=== PATIENT | female | born 1945 | race Caucasian/White ===

== ENCOUNTER 2017-03-09 05:30 | Inpatient (IN) | payer OTHER ==
[2017-03-07 13:16] LABS: HEMATOCRIT 30.6 % (37.0-47.0); HEMOGLOBIN 10.4 gm/dL (12.0-15.0); MCH 29.4 pg (26.0-34.0); MCHC 34.1 g/dL (28.0-37.0); MCV 86.1 fL (80.0-100.0); RBC 3.56 mil/uL (4.20-5.00); RDW 13.6 % (10.5-14.5); URINE BILIRUBIN NEGATIVE (Negative); URINE BLOOD NEGATIVE (Negative); URINE CLARITY CLEAR; URINE COLOR YELLOW; URINE GLUCOSE-RANDOM* NEGATIVE (Negative); URINE KETONES TRACE (Negative); URINE LEUKOCYTES-REFLEX NEGATIVE (Negative); URINE NITRITE-REFLEX NEGATIVE (Negative); URINE PROTEIN (DIPSTICK) NEGATIVE (Negative); URINE SPECIFIC GRAVITY 1.025 (1.005-1.035); URINE UROBILINOGEN 0.2 E.U./dl (0.2-1.0); WBC 5.6 thou/uL (4.0-11.0)
[2017-03-07 13:30] LABS: ALBUMIN 3.7 g/dL (3.4-5.0); APTT 23.8 Seconds (24.5-32.8); CALCIUM 9.1 mg/dL (8.5-10.1); CREATININE 1.2 mg/dL (0.6-1.0); INR 1.1; POTASSIUM 4.8 mmol/L (3.5-5.1); PROTIME 11.1 Seconds (9.3-11.4); TOTAL BILIRUBIN 0.5 mg/dL (<0.1-1.0); TOTAL PROTEIN 6.1 g/dL (6.4-8.2)
[2017-03-09] VITALS (34 sets, daily range): BP systolic 86–119; BP diastolic 29–73
[~2017-03-09] VITALS: Ht 152.4 cm; Wt 72.1 kg
--- NOTE | ~2017-03-09 | O ---
[facility] [address] [place] [address] OPERATIVE REPORT Name: FRANCO KENDRICK Room #: 240-P [facility] IN M.R.#: [id number] Admission: 03/09/17 Attend Phys: Mike Garza MD Discharge: 03/10/17 Date of : 45 Report #: [id number] THIS REPORT FOR: //name// CC: Mike HawthorneErica DATE OF SERVICE: 03/09/2017 PREOPERATIVE DIAGNOSIS: Right internal carotid artery stenosis, asymptomatic. FINAL DIAGNOSIS: Right internal carotid artery stenosis, asymptomatic. OPERATIVE PROCEDURE PERFORMED: Right internal carotid endarterectomy with EEG monitoring. SURGEON: Mike Garza MD. STEERSMAN: Gabriella Pugh. ANESTHESIA: General. OPERATIVE INDICATIONS: The patient is a 72-year-old female, followed for an internal carotid artery stenosis for sometime now. The patient was told evidence of high grade stenosis, underwent subsequent angiography showing evidence of significant discrete right internal carotid artery stenosis proximally, about 80% in diameter. It was felt prudent to proceed with a carotid endarterectomy at this time. OPERATIVE SUMMARY: The patient was brought to the operating room and placed on the OR table in supine position. After anesthesia was induced via the general endotracheal route and monitoring lines have been positioned, the patient was prepped and draped in sterile fashion with chlorhexidine. I made an oblique incision in the patient's right neck medial to the sternocleidomastoid muscle. Dissection was carried down through the platysma and subcutaneous tissues. The contents of the carotid sheath was identified and dissected free from surrounding tissue. We identified the common internal and external carotid arteries without difficulty. The hypoglossal and vagus nerves were identified and care was taken not to injure them. The patient was given 15,000 units intravenous heparin. The internal, then common, then external carotid arteries were clamped. A common carotid arteriotomy was made and extended up into the internal carotid artery. 14-Montenegrin shunt was then placed in the internal carotid artery, backbled and then placed in the common carotid artery. It should be noted that EEG changes were noted after clamping of the vessel. These EEG changes returned to baseline after the shunt was inserted. We then dissected the plaque from the vessel wall. It was amputated proximally and distally, there was good tapering, and an eversion endarterectomy was performed [address] [address] OPERATIVE REPORT Name: FRANCO KENDRICK Melo Room #: 240-P [facility] IN M.R.#: [id number] Admission: 03/09/17 Attend Phys: Mike Garza MD Discharge: 03/10/17 Date of : 45 Report #: [id number] in the external carotid artery. Then, all loose fronds were debrided from the vessel wall. No tacking sutures were needed distally. I felt that since this was relatively large vessel, the 14-Montenegrin shunt able to be inserted that we would close the arteriotomy without a patch. I therefore closed the arteriotomy with 6-0 Prolene. Prior to completing the closure, the shunt was clamped and removed. We replaced the clamps on the internal common carotid arteries. The site was flushed both retrograde and antegrade and irrigated with heparinized saline solution. Just prior to completing the closure, the clamp on the external carotid artery was removed to allow the site to deair. We then finished the closure. The clamp was then removed from the common carotid artery, and then, after several beats, the clamp was removed on the internal carotid artery to restore blood flow to the brain. Again, EEG changes were noted while the clamps were on and the shunt was being removed; however, the EEG returned to normal shortly after reestablishing flow. Protamine was then given to reverse the heparin, and hemostasis was deemed adequate. The wound was closed in multiple layers with absorbable suture. Prior to closure, Doppler ultrasound was performed of the vessels, and there were good signals noted in the common internal and external carotid arteries. <ELECTRONICALLY SIGNED> By: Mike Garza MD 04/02/17 1157 1209 1302 Mike Garza MD /nt
--- NOTE | ~2017-03-09 | S ---
[facility] [place] [address] SURGICAL PATH RPT PROCEDURE Name: CHERELLE KENDRICK Room #: 240-P ADM IN M.R.#: [id number] Admission: 03/09/17 Date of : 45 Discharge: Report #: [id number] Path Case #: [id number] PATHOLOGY REPORT COLLECTION DATE: 03/09/2017 RECEIVED DATE: 03/09/2017 SUBMITTING PHYS: Dr. Mike Garza OTHER PHYS: Dr. Danielle Hawthorne SPECIMEN(S) RECEIVED: A.Plaque right carotid artery * * * * * * * * * * * * FINAL DIAGNOSIS: Plaque right carotid artery, removal: - Marked calcific sclerosis. (IUV:rlm; 03/10/2017) PATHOLOGIST: Kathie Strickland M.D. REPORT ELECTRONICALLY SIGNED BY: Kathie Strickland M.D. DATE/TIME: 03/10/2017 15:33 * * * * * * * * * * * * GROSS PATHOLOGY: The specimen is received in formalin, labeled "Cherelle Kendrick and plaque right carotid artery", is a previously opened partially calcified tubular segment 2.8 x 0.5 cm. Quality Specialist sections in A1 after decalcification. (SWS; 03/09/2017) CLINICAL HISTORY: Carotid stenosis INITIAL CPT CODE(S): A; 45385, 75105 Professional services performed by [facility] at [facility] [address], [place] [address] Technical services performed by [facility] at [address] [place] [address]., [address], [place] [address]. [facility] [address] [place] [address] SURGICAL PATH RPT PROCEDURE Name: CHERELLE KENDRICK Room #: 240-P ADM IN M.R.#: [id number] Admission: 03/09/17 Date of : 45 Discharge: Report #: [id number] Path Case #: [id number] [place] [address] PHONE: [phone] DIRECTOR: Mauri Ruelas M.D. * * * END OF REPORT * * *
[~2017-03-09 05:30] MED LIST: AMARYL4 MG PO; AMLODIPINE BESY10 MG PO; ASPIR 8181 MG PO; ATENOLOL 50MG T50 M1; ATORVASTATIN CA40 MG PO; CALCIUM CITRAT1 EA19 PO; CILOSTAZOL 100100 M1 PO; CINNAMON500 MG PO; CLARITIN10 MG PO; COLACE100 MG PO; FISH OIL 1,0001 EAC5 PO; FLONASE 0.05%50 MCG; FOSAMAX 70 MG T70 MG PO; GLUCOPHAGE500 MG; GLYBURIDE 3 MG M3 M1; GLYBURIDE 3 MG M3 MG; HYDROCHLOROTHIA25 M2 PO; LEVOTHROID125 MCG PO; LEVOXYL112 MCG PO; ONGLYZA2.5 MG PO; PLAVIX 75 MG TA75 M1 PO; PRILOSEC40 MG PO; SIMVASTATIN20 MG; VITAMIN B-12500 MCG PO; VITAMIN B-125000 MCG; VITAMIN E400 UNIT PO; ZESTRIL40 MG PO
[2017-03-09 19:11] LABS: GLYCOHEMOGLOBIN (HGB A1C) 8.5 % (4.8-5.6)
[2017-03-10] VITALS (10 sets, daily range): BP systolic 103–130; BP diastolic 35–47
[2017-03-10 05:05] LABS: CALCIUM 7.4 mg/dL (8.5-10.1); CREATININE 0.9 mg/dL (0.6-1.0); POTASSIUM 4.4 mmol/L (3.5-5.1)
[2017-03-10 05:33] LABS: HEMOGLOBIN 8.2 gm/dL (12.0-15.0); MCH 29.2 pg (26.0-34.0); MCV 85.7 fL (80.0-100.0); RBC 2.8 mil/uL (4.20-5.00); RDW 13.7 % (10.5-14.5); WBC 5.1 thou/uL (4.0-11.0)
[2017-03-10] MEDS ORDERED: HYDROCODONE-AP1 EAC6 PO (10:26)
== END 2017-03-10 15:00 | disposition home or self-care (01) | DRG 27 ==
LOC: ICU 05:30 → TBA 05:30 → PRE 12:29 → ICU 14:28 → PRE 15:27 → ENTRNSPT 03-10 14:05 → EDTRNSPTSTS 03-10 14:09 → ICU 03-10 15:00
PROVIDERS: Nurse Practitioner; Thoracic Surgery (Cardiothoracic Vascular Surgery)
PROC: 03CK3ZZ Extirpation of Matter from Right Internal Carotid Artery, Percutaneous Approach (ICD-10-PCS; principal; 2017-03-09)
DX: I65.21 Occlusion and stenosis of right carotid artery (principal); I95.9 Hypotension, unspecified; I10 Essential (primary) hypertension; E78.5 Hyperlipidemia, unspecified; E11.65 Type 2 diabetes mellitus with hyperglycemia; E03.9 Hypothyroidism, unspecified; I25.10 Atherosclerotic heart disease of native coronary artery without angina pectoris; R00.1 Bradycardia, unspecified; Z88.8 Allergy status to other drugs, medicaments and biological substances; Z88.2 Allergy status to sulfonamides
CPT/HCPCS: 10204; 50010; 50101; 50386; 50417; 50455; 51301; 56524; 56526; 56528; 56534; 62110; 62900; 65020; 65040; 65043; 70005

== ENCOUNTER → 2019-05-29 | Outpatient (CLI) | payer OTHER ==
[~2019-05-29] MED LIST changes: +HYDROCODONE-AP1 EAC6 PO
== END ==
LOC: SJCVCIMAG 08:11
DX: I65.23 Occlusion and stenosis of bilateral carotid arteries (principal); I70.203 Unspecified atherosclerosis of native arteries of extremities, bilateral legs; E11.51 Type 2 diabetes mellitus with diabetic peripheral angiopathy without gangrene; I87.2 Venous insufficiency (chronic) (peripheral); I25.10 Atherosclerotic heart disease of native coronary artery without angina pectoris; I10 Essential (primary) hypertension; I48.91 Unspecified atrial fibrillation

== ENCOUNTER → 2019-08-07 | Outpatient (CLI) | payer OTHER | LOC: SJCVCIMAG 08:42 | PROVIDERS: ATTEND Internal Medicine Cardiovascular Disease | DX: I08.8 Other rheumatic multiple valve diseases (principal); I11.9 Hypertensive heart disease without heart failure; I48.91 Unspecified atrial fibrillation; I45.10 Unspecified right bundle-branch block; R94.31 Abnormal electrocardiogram [ECG] [EKG]; I25.810 Atherosclerosis of coronary artery bypass graft(s) without angina pectoris; E78.00 Pure hypercholesterolemia, unspecified; M16.0 Bilateral primary osteoarthritis of hip; E11.9 Type 2 diabetes mellitus without complications; Z79.84 Long term (current) use of oral hypoglycemic drugs; Z79.899 Other long term (current) drug therapy; Z79.4 Long term (current) use of insulin; Z98.61 Coronary angioplasty status; Z95.1 Presence of aortocoronary bypass graft; Z82.49 Family history of ischemic heart disease and other diseases of the circulatory system ==

== ENCOUNTER → 2020-02-04 | Outpatient (CLI) | payer OTHER | LOC: SJCVC 14:01 | PROVIDERS: ATTEND Internal Medicine Cardiovascular Disease | DX: R94.31 Abnormal electrocardiogram [ECG] [EKG] (principal); I45.10 Unspecified right bundle-branch block; I48.91 Unspecified atrial fibrillation; I25.10 Atherosclerotic heart disease of native coronary artery without angina pectoris; I10 Essential (primary) hypertension; E78.00 Pure hypercholesterolemia, unspecified; Z95.1 Presence of aortocoronary bypass graft; Z91.040 Latex allergy status ==

== ENCOUNTER → 2020-02-12 | Outpatient (CLI) | payer OTHER | LOC: SJCVCIMAG 08:17 | PROVIDERS: ATTEND Internal Medicine Cardiovascular Disease | DX: I70.203 Unspecified atherosclerosis of native arteries of extremities, bilateral legs (principal); I11.9 Hypertensive heart disease without heart failure; I25.10 Atherosclerotic heart disease of native coronary artery without angina pectoris; I48.91 Unspecified atrial fibrillation; E78.00 Pure hypercholesterolemia, unspecified; E11.9 Type 2 diabetes mellitus without complications; I77.9 Disorder of arteries and arterioles, unspecified; I87.2 Venous insufficiency (chronic) (peripheral); Z79.84 Long term (current) use of oral hypoglycemic drugs; Z79.82 Long term (current) use of aspirin; Z91.040 Latex allergy status ==

== ENCOUNTER 2020-04-07 06:41 | Observation (INO) | payer OTHER ==
[2020-04-07] VITALS (9 sets, daily range): BP systolic 108–172; BP diastolic 44–94
[~2020-04-07] VITALS: Ht 152.4 cm; Wt 113.7 kg
[2020-04-07 07:41] LABS: HEMATOCRIT 36.5 % (37.0-47.0); HEMOGLOBIN 12.1 gm/dL (12.0-15.0); MCH 32.1 pg (26.0-34.0); MCHC 33.2 g/dL (28.0-37.0); MCV 96.7 fL (80.0-100.0); RBC 3.77 mil/uL (4.20-5.00); RDW 14.1 % (10.5-14.5); WBC 5.9 thou/uL (4.0-11.0)
[2020-04-07 07:46] LABS: CALCIUM 9.2 mg/dL (8.5-10.1); CREATININE 1.2 mg/dL (0.6-1.0); POTASSIUM 3.7 mmol/L (3.5-5.1)
[2020-04-07] MEDS ORDERED: LANTUS SUBQ (07:53)
[2020-04-07] MEDS ORDERED: XARELTO20 MG PO (07:54)
[2020-04-07] MEDS ORDERED: ONGLYZA5 MG PO (07:55)
--- NOTE | 2020-04-07 17:16 | CATHLAB ---
[facility] [address] [place] [address] INVASIVE PROCEDURE REPORT Name: FRANCO KENDRICK Room #: 214-P [facility]..#: [id number] Admission: 04/07/20 Attend Phys: Phillip Landa MD Discharge: Date of : 45 Report #: [id number] THIS REPORT FOR: cc: Danielle Ibanez MD, Paula V. MD Park, Jin S. MD ~ APPROVED REPORT Study performed: 04/07/2020 10:25:14 Patient Details Patient Status: Out-Patient Room #: The patient is a 75 year-old female Event Personnel Sandra Pabon RN RN, Beto North Staff Research Scientist, Mark Peralta RTR Monitor, Lucia Hoff RTR, RICE DRIER Scrub Procedures Performed Art Access - R femoral artery* RON Revasc Graft Single RCA C9604 SVGREVSING Left Heart Cath Coronaries, Bypass Grafts 4727117 LHCCORCABG 93236 Initial Mod Sed Same Phys/QHP Gr5y 324546 24554 Mod Sed Same Phys/QHP Ea 504352 Hemostasis with Manual pressure Indication Dyspnea, Unstable angina , Chest pain Risk Factors Peripheral Vascular Disease, Hypercholesterolemia, Coronary Artery DiseaseHypertension, Diabetes Previous Procedures/Diagnoses Previous CABG, Previous Femoral Procedure Procedure Narrative The patient was brought electively to the Cardiac Catheterization Laboratory and was prepped and draped in a sterile manner. A SHEATH BRITE-TIP 6F X 11CM ([id number]) sheath was inserted into the RFA^. Coronary angiography was performed using coronary diagnostic catheters. The right coronary system was accessed and visualized with a JR4 catheter. The left coronary system was accessed and visualized with a JL4 catheter. Left ventricular/Aortic Valve gradient assessed [facility] [place] [address] [place] [address] INVASIVE PROCEDURE REPORT Name: FRANCO KENDRICK Room #: 214-P [facility]#: [id number] Admission: 04/07/20 Attend Phys: Phillip Landa, Discharge: Date of : 45 Report #: [id number] via catheter pullback. The patient tolerated the procedure well and there were no complications associated with the procedure. There was no hematoma. Hemostasis was obtained after sheath removal and manual pressure two hours post procedure. Intraoperative Conscious Sedation Sedation start time: 0840 Case end Time: 1120 Fentanyl 100 mcg Versed 2 mg This was a combination procedure with Aortagram and Run off performed by Dr. Phillip Landa. Medicine and radiation dose reflect both procedures. Fluoro Time: 26.64 minutes Dose: DAP 74871.60 cGycm2 1468 mGy Contrast Type and Amount: Visipaque 263 ml Coronary Angiography The patient's coronary anatomy is right dominant. [place] Artery Percent Stenosis Left Main: % Prox LAD: 100 % Mid/Distal LAD: % Circumflex: 90 % RCA: 90 % Ramus: % Diagnostic Cath LAD There is a patent SAN graft with an end-to-side anastomosis to the mid LAD segment. There were no flow-limiting lesions. After the anastomosis, there is both retrograde and anterograde flow in the [place] LAD. OM1 There is a patent SVG with an end-to-side anastomosis to OM1. There is a mild stenosis within the midsegment of the vein graft, 30%. Right Coronary There is a severe occlusion in the mid segment of the SVG to the distal RCA, 90%. Left Ventriculography Left Ventriculography was not performed. Ejection Fraction was >55% based off patient's Echocardiogram. An LVEDP was measured and there is no gradient across the outflow tract. Hemodynamics The aortic pressure is 126/56 mmHg with a mean of 82 mmHg. The left ventricular pressure is 120/4 mmHg with a mean of mmHg. The left ventricular end diastolic pressure is 12 mmHg. Pullback from the left ventricle to the aorta revealed no gradient across the aortic valve. [facility] [address] [place] [address] INVASIVE PROCEDURE REPORT Name: FRANCO KENDRICK Room #: 214-P [facility]..#: [id number] Admission: 04/07/20 Attend Phys: Phillip Landa, Discharge: Date of : 45 Report #: [id number] PCI Technique Lesion Percutaneous coronary intervention was performed on the SVG to the distal RCA. The lesion stenosis prior to intervention was 95% with TOM 3 flow. A 6FR MP2 Guide Catheter was used to engage the ostium. A LUGE Interventional Guidewire was used to cross the lesion. BALLOON DILATION A Balloon catheter TREK RX 2.5 X 12 #[id number] was inserted and inflated up to 12.00atm for 16seconds. STENT DEPLOYMENT A drug-eluting stent XIENCE SÁNCHEZ RX 3.0 X 12 #[id number] was inserted and inflated up to 16atm for 15seconds. Final angiography reveals 0 % stenosis with TOM 3 flow. PCI Technique Lesion 3 Percutaneous Coronary Intervention was performed on the Mid 02/16. Conclusion 1. Successful insertion of a drug-eluting stent into the SVG to the RCA. 2. There is a patent SAN graft to the LAD. 3. There is a patent SVG to OM1, with mild disease. 4. Recommend dual antiplatelet therapy and aggressive risk factor management. <ELECTRONICALLY SIGNED> By: Beto North MD 04/07/201715 15 15 Beto North MD /INF
--- NOTE | 2020-04-07 17:17 | NUR ---
PT ADMITTED TO CCU FOR OBSERVATION POST HEART CATH WITH STENT PLACEMENT AND 3 STENTS IN LSSS. PT IS ON A 6HR BED HOLD AND HOB NO MORE THAN 30 DEGREE, SITE CLEAN DRY AND INTACT, NO HEMATOMA INTACT, PT DENIES CHEST PAIN OR DISCOMFORT. VS WLN. NO CONCERNS OR QUESTIONS AT THIS TIME.
[2020-04-08 04:18] VITALS: BP 94/38
[2020-04-08 05:04] LABS: HEMATOCRIT 29.8 % (37.0-47.0); MCH 32.6 pg (26.0-34.0); MCHC 33.9 g/dL (28.0-37.0); MCV 96.2 fL (80.0-100.0); RBC 3.09 mil/uL (4.20-5.00); WBC 8.3 thou/uL (4.0-11.0)
[2020-04-08 05:12] LABS: HEMOGLOBIN 10.1 gm/dL (12.0-15.0)
[2020-04-08 05:27] LABS: ALBUMIN 2.8 g/dL (3.4-5.0); CALCIUM 8.1 mg/dL (8.5-10.1); CREATININE 1.1 mg/dL (0.6-1.0)
--- NOTE | 2020-04-08 05:30 | NUR ---
PT UP AMBULATING INHALL AFTER BEDREST WAS OVER, VSS, NO C/O PAIN, R GROIN SITE REMAINS CDI, UP AMBULATING IN HALLS THIS AM, WILL CON'T TO MONITOR PER PPOC.
--- NOTE | 2020-04-08 07:03 | EKG ---
[place] [address] [facility] [place] [address] ELECTROCARDIOGRAM REPORT Name: FRANCO KENDRICK Room #: 214-[facility].#: [id number] Admission: 04/07/20 Attend Phys: Phillip Landa MD Discharge: Date of : 45 Report #: [id number] [facility] Test Date: 2020-04-07 Test Time: 12:46:25 Pat Name: FRANCO KENDRICK Department: Room: [facility] Gender: F Manager Of Engineering: TAMIKO : 1945 Requested By: Beto North Order Number: [id number] : Sam Pathak Measurements Intervals [place] Rate: 73 P: IN: QRS: 69 QRSD: 138 T: -17 QT: 425 QTc: 469 Interpretive Statements Atrial fibrillation Right bundle branch block Compared to ECG 07/24/2014 09:32:38 Sinus rhythm no longer present Electronically Signed On 04-08-2020 7:03:08 SR. MEDIA MANAGER by Sam Pathak [email or web address] <ELECTRONICALLY SIGNED> By: Sam Pathak MD, [facility] 04/08/20 0703 1246 1246 Sam Pathak MD, FACC /EPI
--- NOTE | 2020-04-08 07:42 | EKG ---
[address] [email or web address] [address] ELECTROCARDIOGRAM REPORT Name: FRANCO KENDRICK Room #: 214-[facility]..#: [id number] Admission: 04/07/20 Attend Phys: Phillip Landa MD Discharge: Date of : 45 Report #: [id number] [facility] Test Date: 2020-04-08 Test Time: 07:18:57 Pat Name: FRANCO KENDRICK Department: Room: 214 Gender: F Brushing Operator: TAMIKO : 1945 Requested By: Beto North Order Number: [id number] MD: Florentino Cassidy Measurements Intervals [place] Rate: 92 P: IN: QRS: 52 QRSD: 138 T: -24 QT: 390 QTc: 483 Interpretive Statements Atrial fibrillation Right bundle branch block Compared to ECG 04/07/2020 12:46:25 No significant changes Electronically Signed On 04-08-2020 7:42:16 DUPLEX TRIMMER by Florentino Cassidy [email or web address] <ELECTRONICALLY SIGNED> By: Florentino Cassidy MD, [facility] 04/08/20 0742 7 Florentino Cassidy MD, FACC /EPI
[2020-04-08 07:45] VITALS: BP 103/51
[2020-04-08] MEDS ORDERED: PLAVIX 75 MG TA75 M1 PO (08:27)
[2020-04-08 09:09] VITALS: BP 104/57
--- NOTE | 2020-04-08 09:29 | NUR ---
PT DISCHARGED HOME. DISCHARGE INSTRUCTIONS READ AND GAVE TO PATIENT NO QUESTIONS OR CONCERNS AT THIS TIME. PT EDUCATED TO MONITOR GROIN SITE FOR SWELLING OR BLEEDING AT HOME. NO COMPLICATIONS SO FAR ON GROIN SITE. PT REFUSED ALL MORNING MEDICATIONS EXCEPT PLAVIX STATING SHE WILL TAKE THE REST AT HOME WHEN SHE GETS THERE. PT IS ALERT AND ORITENTED AT THIS TIME. VS WNL AND STABLE.
== END 2020-04-08 09:50 | disposition home or self-care (01) ==
LOC: CATH 06:41 → 2N 16:14 → CATH 16:15 → 2N 04-08 09:50
PROVIDERS: Internal Medicine; Internal Medicine Cardiovascular Disease; ADMIT Nuclear Medicine Nuclear Cardiology; ATTEND Nuclear Medicine Nuclear Cardiology
DX: I70.212 Atherosclerosis of native arteries of extremities with intermittent claudication, left leg (principal); I25.110 Atherosclerotic heart disease of native coronary artery with unstable angina pectoris; I48.21 Permanent atrial fibrillation; I10 Essential (primary) hypertension; E78.5 Hyperlipidemia, unspecified; E11.9 Type 2 diabetes mellitus without complications; D64.9 Anemia, unspecified; Z79.01 Long term (current) use of anticoagulants; Z79.82 Long term (current) use of aspirin; Z79.899 Other long term (current) drug therapy; Z95.1 Presence of aortocoronary bypass graft

== ENCOUNTER → 2020-04-10 | Outpatient (CLI) | payer OTHER ==
[~2020-04-10] VITALS: Ht 152.4 cm; Wt 77.7 kg
[~2020-04-10] MED LIST changes: +LANTUS SUBQ; +ONGLYZA5 MG PO; +XARELTO20 MG PO
[2020-04-10 08:37] VITALS: BP 136/66
== END | disposition home or self-care (01) ==
LOC: CATH 07:58
PROVIDERS: ATTEND Nuclear Medicine Nuclear Cardiology
DX: I70.211 Atherosclerosis of native arteries of extremities with intermittent claudication, right leg (principal); M79.604 Pain in right leg; I10 Essential (primary) hypertension; E78.5 Hyperlipidemia, unspecified; E11.9 Type 2 diabetes mellitus without complications; I48.91 Unspecified atrial fibrillation; E03.9 Hypothyroidism, unspecified; E66.9 Obesity, unspecified; Z98.890 Other specified postprocedural states; Z79.899 Other long term (current) drug therapy; Z79.4 Long term (current) use of insulin; Z95.1 Presence of aortocoronary bypass graft; Z90.710 Acquired absence of both cervix and uterus; Z98.84 Bariatric surgery status; Z98.42 Cataract extraction status, left eye; Z98.41 Cataract extraction status, right eye

== ENCOUNTER → 2020-04-22 | Outpatient (CLI) | payer OTHER | LOC: SJCVC 11:02 | PROVIDERS: ATTEND Internal Medicine Cardiovascular Disease | DX: R94.31 Abnormal electrocardiogram [ECG] [EKG] (principal); I45.2 Bifascicular block; I45.10 Unspecified right bundle-branch block; E78.00 Pure hypercholesterolemia, unspecified; I73.9 Peripheral vascular disease, unspecified; E03.9 Hypothyroidism, unspecified; Z79.4 Long term (current) use of insulin; Z79.899 Other long term (current) drug therapy; Z72.89 Other problems related to lifestyle ==

== ENCOUNTER → 2020-05-12 | Outpatient (CLI) | payer OTHER | LOC: SJCVC 10:16 | PROVIDERS: ATTEND Internal Medicine Cardiovascular Disease | DX: R94.31 Abnormal electrocardiogram [ECG] [EKG] (principal); I45.10 Unspecified right bundle-branch block; I48.91 Unspecified atrial fibrillation; I25.10 Atherosclerotic heart disease of native coronary artery without angina pectoris; I10 Essential (primary) hypertension; E78.00 Pure hypercholesterolemia, unspecified; I73.9 Peripheral vascular disease, unspecified; E11.9 Type 2 diabetes mellitus without complications; I87.2 Venous insufficiency (chronic) (peripheral); M19.90 Unspecified osteoarthritis, unspecified site; Z91.040 Latex allergy status; Z79.899 Other long term (current) drug therapy; Z79.84 Long term (current) use of oral hypoglycemic drugs; Z95.1 Presence of aortocoronary bypass graft; Z72.89 Other problems related to lifestyle ==

== ENCOUNTER → 2020-07-10 | Outpatient (CLI) | payer OTHER | LOC: SJCVC 14:45 | PROVIDERS: ATTEND Internal Medicine Cardiovascular Disease | DX: R94.31 Abnormal electrocardiogram [ECG] [EKG] (principal); I45.10 Unspecified right bundle-branch block; I48.91 Unspecified atrial fibrillation; I77.9 Disorder of arteries and arterioles, unspecified; I25.10 Atherosclerotic heart disease of native coronary artery without angina pectoris; I10 Essential (primary) hypertension; E78.00 Pure hypercholesterolemia, unspecified; E11.51 Type 2 diabetes mellitus with diabetic peripheral angiopathy without gangrene; I73.9 Peripheral vascular disease, unspecified; M19.90 Unspecified osteoarthritis, unspecified site; Z98.61 Coronary angioplasty status; Z95.1 Presence of aortocoronary bypass graft; Z91.040 Latex allergy status; Z79.4 Long term (current) use of insulin; Z79.82 Long term (current) use of aspirin; Z79.899 Other long term (current) drug therapy; Z82.49 Family history of ischemic heart disease and other diseases of the circulatory system ==

== ENCOUNTER → 2020-08-08 | Outpatient (CLI) | payer OTHER | LOC: SJCVCIMAG 10:21 | PROVIDERS: ATTEND Nuclear Medicine Nuclear Cardiology | DX: I70.203 Unspecified atherosclerosis of native arteries of extremities, bilateral legs (principal); Z95.828 Presence of other vascular implants and grafts ==

== ENCOUNTER → 2020-08-12 | Outpatient (CLI) | payer OTHER | LOC: SJCVC 09:06 | PROVIDERS: ATTEND Nuclear Medicine Nuclear Cardiology | DX: E11.51 Type 2 diabetes mellitus with diabetic peripheral angiopathy without gangrene (principal); I87.2 Venous insufficiency (chronic) (peripheral); I77.9 Disorder of arteries and arterioles, unspecified; I25.10 Atherosclerotic heart disease of native coronary artery without angina pectoris; I48.91 Unspecified atrial fibrillation; E78.00 Pure hypercholesterolemia, unspecified; I10 Essential (primary) hypertension; M19.90 Unspecified osteoarthritis, unspecified site; R60.0 Localized edema; Z95.1 Presence of aortocoronary bypass graft; Z79.899 Other long term (current) drug therapy; Z72.89 Other problems related to lifestyle; Z91.040 Latex allergy status ==

== ENCOUNTER → 2020-08-14 | Outpatient (CLI) | payer OTHER | LOC: SJCVCIMAG 08:51 | PROVIDERS: ATTEND Internal Medicine Cardiovascular Disease | DX: I65.23 Occlusion and stenosis of bilateral carotid arteries (principal); E78.00 Pure hypercholesterolemia, unspecified; I10 Essential (primary) hypertension; E11.9 Type 2 diabetes mellitus without complications; Z79.899 Other long term (current) drug therapy ==

== ENCOUNTER → 2020-10-15 | Outpatient (CLI) | payer OTHER | LOC: SJCVC 13:10 | PROVIDERS: ATTEND Internal Medicine Cardiovascular Disease | DX: R94.31 Abnormal electrocardiogram [ECG] [EKG] (principal); I45.10 Unspecified right bundle-branch block; I48.91 Unspecified atrial fibrillation; I25.10 Atherosclerotic heart disease of native coronary artery without angina pectoris; I10 Essential (primary) hypertension; E78.00 Pure hypercholesterolemia, unspecified; I77.9 Disorder of arteries and arterioles, unspecified; M19.90 Unspecified osteoarthritis, unspecified site; I65.29 Occlusion and stenosis of unspecified carotid artery; I87.2 Venous insufficiency (chronic) (peripheral); E11.9 Type 2 diabetes mellitus without complications; I73.9 Peripheral vascular disease, unspecified; Z79.82 Long term (current) use of aspirin; Z79.84 Long term (current) use of oral hypoglycemic drugs; Z79.899 Other long term (current) drug therapy ==

== ENCOUNTER → 2021-03-04 | Outpatient (CLI) | payer OTHER | LOC: SJCVCIMAG 11:14 | PROVIDERS: ATTEND Nuclear Medicine Nuclear Cardiology | DX: I70.203 Unspecified atherosclerosis of native arteries of extremities, bilateral legs (principal); I77.9 Disorder of arteries and arterioles, unspecified; I25.10 Atherosclerotic heart disease of native coronary artery without angina pectoris; I87.2 Venous insufficiency (chronic) (peripheral); I10 Essential (primary) hypertension; I48.91 Unspecified atrial fibrillation; E11.9 Type 2 diabetes mellitus without complications; E78.00 Pure hypercholesterolemia, unspecified; M19.90 Unspecified osteoarthritis, unspecified site; I65.23 Occlusion and stenosis of bilateral carotid arteries; Z72.89 Other problems related to lifestyle; Z79.4 Long term (current) use of insulin; Z79.82 Long term (current) use of aspirin; Z79.899 Other long term (current) drug therapy; Z82.49 Family history of ischemic heart disease and other diseases of the circulatory system; Z88.8 Allergy status to other drugs, medicaments and biological substances ==

== ENCOUNTER → 2021-03-13 | Outpatient (CLI) | payer OTHER ==
[~2021-03-13] VITALS: Ht 152.4 cm; Wt 72.6 kg
[2021-03-13 07:55] VITALS: BP 129/55
[2021-03-13 08:02] LABS: HEMATOCRIT 31.6 % (37.0-47.0); HEMOGLOBIN 10.6 gm/dL (12.0-15.0); MCH 30.8 pg (26.0-34.0); MCHC 33.4 g/dL (28.0-37.0); MCV 92.1 fL (80.0-100.0); RBC 3.43 mil/uL (4.20-5.00); RDW 14.4 % (10.5-14.5); WBC 5.2 thou/uL (4.0-11.0)
[2021-03-13 08:10] LABS: CALCIUM 9.1 mg/dL (8.5-10.1); POTASSIUM 3.9 mmol/L (3.5-5.1)
--- NOTE | 2021-03-13 11:17 | NUR ---
PT ON BEDPAN AND VOIDED APPROX 300CC URINE. PT CLEANED AND SHEETS CHANGED AFTER PAPPAS REMOVAL
--- NOTE | 2021-03-13 12:52 | NUR ---
MEAL TRAY PROVIDED. PT A/OX3 WITH NO C/O.
== END | disposition home or self-care (01) ==
LOC: CATH 06:53
PROVIDERS: ATTEND Nuclear Medicine Nuclear Cardiology
DX: I70.212 Atherosclerosis of native arteries of extremities with intermittent claudication, left leg (principal); I70.1 Atherosclerosis of renal artery; M79.604 Pain in right leg; M79.605 Pain in left leg; I11.0 Hypertensive heart disease with heart failure; I50.9 Heart failure, unspecified; I48.91 Unspecified atrial fibrillation; E78.00 Pure hypercholesterolemia, unspecified; I25.10 Atherosclerotic heart disease of native coronary artery without angina pectoris; Z98.890 Other specified postprocedural states; Z79.899 Other long term (current) drug therapy; Z79.4 Long term (current) use of insulin; Z88.2 Allergy status to sulfonamides

== ENCOUNTER → 2021-03-23 | Outpatient (CLI) | payer OTHER ==
[~2021-03-23] VITALS: Ht 152.4 cm; Wt 72.6 kg
[~2021-03-23] MED LIST changes: +LORATIDINE 10 M10 M1 PO; +MAGNESIUM250 M1 PO; +VITAMIN C500 M2 PO
[2021-03-23 07:36] VITALS: BP 125/54
[2021-03-23 07:38] LABS: HEMATOCRIT 31.7 % (37.0-47.0); HEMOGLOBIN 10.6 gm/dL (12.0-15.0); MCH 30.8 pg (26.0-34.0); MCHC 33.4 g/dL (28.0-37.0); MCV 92.2 fL (80.0-100.0); RBC 3.44 mil/uL (4.20-5.00); RDW 14.3 % (10.5-14.5); WBC 4.8 thou/uL (4.0-11.0)
[2021-03-23 07:51] LABS: CALCIUM 9.6 mg/dL (8.5-10.1); CREATININE 1.1 mg/dL (0.6-1.0); POTASSIUM 4.3 mmol/L (3.5-5.1)
== END | disposition home or self-care (01) ==
LOC: CATH 06:57
PROVIDERS: ATTEND Nuclear Medicine Nuclear Cardiology
DX: I70.211 Atherosclerosis of native arteries of extremities with intermittent claudication, right leg (principal); M79.604 Pain in right leg; I10 Essential (primary) hypertension; E78.00 Pure hypercholesterolemia, unspecified; E11.9 Type 2 diabetes mellitus without complications; I48.91 Unspecified atrial fibrillation; E78.5 Hyperlipidemia, unspecified; I25.10 Atherosclerotic heart disease of native coronary artery without angina pectoris; Z98.890 Other specified postprocedural states; Z79.899 Other long term (current) drug therapy; Z88.2 Allergy status to sulfonamides; Z88.8 Allergy status to other drugs, medicaments and biological substances; Z79.82 Long term (current) use of aspirin